=== PATIENT | male | born 1945 | race Caucasian/White ===

== ENCOUNTER → 2017-07-13 | Outpatient (CLI) | payer MEDICARE, OTHER ==
[~2017-07-13] MED LIST: ACETAMINOPHEN325 M1 PO; ADULT LOW DOSE81 MG PO; ASPIRIN325; CELEBREX 200 M200 MG PO; CENTRUM SILVER1 EAC4 PO; COLACE100 MG PO; FISH OIL PO; LISINOPRIL-HCT1 EACH PO; LOVASTAT20 PO; NEURONTIN 300300 M1 PO; PERCOCET 5-3251 EACH PO; ROXICODONE5 M1 PO; TAMSULOSIN HCL0.4 M1 PO; VITAMIN C PO; VITAMIN E400 UNIT PO; XARELTO10 M1 PO
== END ==
LOC: M.LAB 06:29
DX: Z01.812 Encounter for preprocedural laboratory examination (principal)